=== PATIENT | female | born 1945 | race Caucasian/White ===

== ENCOUNTER 2020-01-23 17:49 | Inpatient (IN) | payer MEDICARE ==
[~2020-01-23] VITALS: Ht 144.8 cm; Wt 79.8 kg
--- NOTE | 2020-01-23 20:00 | NUR ---
PATIENT ADMITTED FROM [facility] FOR ADMITTING DX OF ACUTE CVA. PATIENT CAME VIA GURNEY WITH 2 INSTITUTIONAL ASSET MANAGER FROM [facility]. PATIENT IS ALERT AND VERBALLY RESPONSIVE. AFEBRILE. NO RESPIRATORY OR ACUTE DISTRESS. PATIENT ABLE TO MAKE NEEDS KNOWN. PATIENT DENIES PAIN, N/V, DIZZINESS. PATIENT WITH LEFT SIDED WEAKNESS. ORIENTED TO BED, ROOM, AND UNIT. MADE COMFORTABLE AND KEPT WARM AND DRY. DR CHRISTENSEN AND DR ESQUEDA MADE AWARE OF PATIENT'S ADMISSION. WILL CONTINUE TO MONITOR PATIENT AND ANTICIPATE NEEDS. WILL OBSERVE FALL AND SAFETY PRECAUTIONS.
[2020-01-23 20:30] VITALS: BP 136/66
[2020-01-23] MEDS ORDERED: Z GUARD REMEDY PASTE 57 GM TUBE TOP PRN (21:00)
[2020-01-23] MEDS ORDERED: BISACODYL 10 MG SUPP.RECT RC PRN (22:15)
--- NOTE | 2020-01-24 05:51 | NUR ---
PATIENT IS ASLEEP AT THIS TIME. SLEPT WELL THROUGH THE NIGHT. IN NO RESPIRATORY DISTRESS. NO COMPLAINTS OF PAIN. NO FACIAL GRIMACING OBSERVED. KEPT PATIENT WARM, DRY, AND COMFORTABLE. FALL AND SAFETY PRECAUTIONS OBSERVED. ALL NEEDS ATTENDED.
[2020-01-24] MEDS: PANTOPRAZOLE SODIUM 40 MG TABLET.DR PO SCH (06:16)
[2020-01-24 06:25] VITALS: BP 159/68
[2020-01-24 07:13] LABS: BASOPHILS # (AUTO) 0.1 K/uL (0.0-8.0); BASOPHILS % (AUTO) 1.2 % (0.0-2.0); EOSINOPHILS # (AUTO) 0.2 K/uL (0.0-0.7); EOSINOPHILS % (AUTO) 2.1 % (0.0-7.0); HEMATOCRIT 41.3 % (31.2-41.9); LYMPHOCYTES # (AUTO) 2.2 K/uL (20.0-40.0); LYMPHOCYTES % (AUTO) 20.1 % (20.5-51.5); MEAN CORPUSCULAR HEMOGLOBIN 27.9 uug (24.7-32.8); MEAN CORPUSCULAR HGB CONC 34 g/dL (32.3-35.6); MONOCYTES # (AUTO) 0.8 K/uL (2.0-10.0); MONOCYTES % (AUTO) 6.9 % (0.0-11.0); NEUTROPHILS # (AUTO) 7.6 K/uL (1.8-8.9); NEUTROPHILS % (AUTO) 69.7 % (38.5-71.5); PLATELET COUNT (AUTO) 414 K/uL (179-408); RED BLOOD CELL COUNT(AUTO) 5.04 MIL/uL (3.63-4.92); WHITE BLOOD COUNT (AUTO) 10.9 K/uL (3.8-11.8)
[2020-01-24 07:35] LABS: THYROID STIMULATING HORMONE 7.217 mIU/mL (0.358-3.740)
[2020-01-24 07:58] LABS: BILIRUBIN,TOTAL 0.5 mg/dL (0.2-1.0); CREATININE 0.8 mg/dL (0.6-1.3); MAGNESIUM 2.3 mg/dL (1.8-2.4); PHOSPHOROUS 3.8 mg/dL (2.5-4.9); POTASSIUM 4.1 mmol/L (3.5-5.1); TOTAL PROTEIN, SERUM 7.6 g/dL (6.4-8.2)
[2020-01-24] MEDS: CLOPIDOGREL 75 MG TABLET PO SCH (09:37)
[2020-01-24] MEDS: VALSARTAN 80 MG TABLET PO SCH (09:37)
[2020-01-24] MEDS: DOCUSATE SODIUM 100 MG CAPSULE PO SCH (09:37)
--- NOTE | 2020-01-24 14:43 | NUR ---
Social Work Note/PH9 Post Stroke Depression Screening: pack worker supervisor met with patient and conducted a PHQ-9 (Post Stroke Depression Screening) in which the patient score of a level of 3 for depression. Patient does not require a psychiatric consult at this time.
--- NOTE | 2020-01-24 14:44 | NUR ---
Social Work Stroke Resources: printing table worker met with patient and provided stroke referrals such as: Stroke Family Warmline at (7-926-7-STROKE) and additional information on caring for a stroke survivor ( ). printing table worker also educated patient on the signs of Stroke and to immediately call 911. printing table worker provided education on the signs of stroke and provided educational packet with information: Dietary food, what stroke is, risks, emotional support, finding support, medical management, and effects of stroke.
[2020-01-24 16:36] VITALS: BP 122/54
[2020-01-24 20:00] VITALS: BP 127/64
[2020-01-24] MEDS: ATORVASTATIN 40 MG TABLET PO SCH (21:52)
[2020-01-25 05:40] VITALS: BP 144/71
[2020-01-25] MEDS: PANTOPRAZOLE SODIUM 40 MG TABLET.DR PO SCH (07:02)
[2020-01-25] MEDS: DOCUSATE SODIUM 100 MG CAPSULE PO SCH (08:46)
[2020-01-25] MEDS: CLOPIDOGREL 75 MG TABLET PO SCH (08:46)
[2020-01-25] MEDS: VALSARTAN 80 MG TABLET PO SCH (08:47)
[2020-01-25] MEDS: BISACODYL 5 MG TABLET.DR PO PRN (16:28)
--- NOTE | 2020-01-25 16:46 | NUR ---
NO DISTRESS NOTED, TOLERATED MEALS WELL
[2020-01-25 16:48] VITALS: BP 144/76
--- NOTE | 2020-01-25 19:35 | NUR ---
In bed, awake, watching TV. Denies any pain/discomforts at this time.Safety measure and afll precaution maintained. Continue care as planned.
[2020-01-25 19:59] VITALS: BP 146/75
[2020-01-25] MEDS: ATORVASTATIN 40 MG TABLET PO SCH (20:42)
[2020-01-26] MEDS: PANTOPRAZOLE SODIUM 40 MG TABLET.DR PO SCH (05:54)
[2020-01-26 05:55] VITALS: BP 137/63
--- NOTE | 2020-01-26 07:28 | NUR ---
Shift end Report: Slept well. VS stable. No complaint reported all night. Urine very concentrated. Instructed patient to increase oral fluid intake as tolerated unless contraindicated. All needs attended and met. Good bed bath rendered, tolerated well. No significant event reported. Continue current rehab plan of care.
[2020-01-26 08:00] VITALS: BP 116/79
[2020-01-26] MEDS: DOCUSATE SODIUM 100 MG CAPSULE PO SCH (08:13)
[2020-01-26] MEDS: CLOPIDOGREL 75 MG TABLET PO SCH (08:13)
[2020-01-26] MEDS: VALSARTAN 80 MG TABLET PO SCH (08:21)
--- NOTE | 2020-01-26 12:48 | NUR ---
INDIVIDUALIZED PLAN OF CARE
--- NOTE | 2020-01-26 13:54 | NUR ---
Patient alert, oriented x 4, not in any distress, sitting on the wheelchair, on room air. She denies any pain or discomfort. Due medications administered and tolerated well. Assisted with her needs promptly and met. Call light and frequently used items placed within reach.
[2020-01-26 16:00] VITALS: BP 121/62
[2020-01-26] MEDS: ATORVASTATIN 40 MG TABLET PO SCH (20:14)
[2020-01-26 20:27] VITALS: BP 124/54
--- NOTE | 2020-01-26 20:28 | NUR ---
Received pt resting in bed. AAO x4. No acute distress noted. VSS. Denies pain/ discomfort. Turned and repositioned. NIHSS assessment done. Due med given as ordered. Safety measures maintained. Call light and personal items within reach. Will continue to monitor.
[2020-01-27] MEDS: PANTOPRAZOLE SODIUM 40 MG TABLET.DR PO SCH (06:21)
[2020-01-27 06:31] VITALS: BP 151/64
[2020-01-27] MEDS: VALSARTAN 80 MG TABLET PO SCH (08:18)
[2020-01-27] MEDS: DOCUSATE SODIUM 100 MG CAPSULE PO SCH (08:19)
[2020-01-27] MEDS: CLOPIDOGREL 75 MG TABLET PO SCH (08:19)
--- NOTE | 2020-01-27 14:46 | NUR ---
INTERDISCIPLINARY TEAM CONFERENCE
[2020-01-27 16:58] VITALS: BP 125/60
--- NOTE | 2020-01-27 18:03 | NUR ---
PATIENT IS ALERT, ORIENTED X4, VERBALLY RESPONSIVE, NO SOB,R RANJEET EVEN NONLABORED, SKIN WARM AND DRY TO TOUCH, NO SKIN ISSUES NOTED, NO PRESSURE INJURY, SKIN IS INTACT, WELL HYDRATED, KEPT CLEAN AND DRY, ASSISTED TO THE BATHROOM, HAD SOFT BM TODAY, BOTH HEELS SKIN INTACT, NO PRESSURE INJURY NOTED UPON SKIN INSPECTION. NO DISTRESS NOTED, PATIENT TOLERATED MEALS AND MEDS, PT, OT SERVICES WELL
--- NOTE | 2020-01-27 19:03 | NUR ---
PATIENT UPPER FULL DENTURE CLEANED, PLACED IN GREEN BOX, PLACED ON SIDE TABLE, ENDORSED TO NEXT SHIFT NURSE
[2020-01-27 20:05] VITALS: BP 145/65
[2020-01-27] MEDS: ATORVASTATIN 40 MG TABLET PO SCH (20:38)
--- NOTE | 2020-01-27 20:51 | NUR ---
Received pt resting in bed and watching tv. AAO x4. No acute distress noted. Denies pain/discomfort. Due med given as ordered. NIHSS assessment done. Safety measures maintained. Call light and personal items within reach. Will continue to monitor.
[2020-01-28] MEDS: PANTOPRAZOLE SODIUM 40 MG TABLET.DR PO SCH (06:21)
[2020-01-28 06:37] VITALS: BP 132/56
[2020-01-28] MEDS: DOCUSATE SODIUM 100 MG CAPSULE PO SCH (09:00)
[2020-01-28] MEDS: VALSARTAN 80 MG TABLET PO SCH (09:35)
[2020-01-28] MEDS: CLOPIDOGREL 75 MG TABLET PO SCH (09:36)
[2020-01-28 10:28] VITALS: BP 122/84
--- NOTE | 2020-01-28 15:44 | NUR ---
Pt received, assessed, no acute distress at this time. Pt assisted to transfer to wheelchair and to toilet for voidingx3 and BMx1. Pt compliant with routine medication administration and therapy as offered. All comfort and safety needs attended to. VSS. Pt refused Colace and Miralax due to loose stool this morning. Belongings list updated, sonRonnie brought new items and took 3 items home with him. Pt assisted to sit up for meals and back to bed following. Side rails upx2, bed in locked and lowest position, alarm on, and SCD pumps intermittently as tolerated. Call light and personal items placed within reach. Will continue to monitor.
[2020-01-28] MEDS: ACETAMINOPHEN 325 MG TABLET PO PRN (18:43)
[2020-01-28 18:48] VITALS: BP 147/57
--- NOTE | 2020-01-28 19:40 | NUR ---
Awake watching TV at this time with HOB elevated, left arm supported with pillow. Denies any pain/discomforts at this time. Safety measures and fall precaution maintained. Continue care as planned.
[2020-01-28 20:10] VITALS: BP 135/72
[2020-01-28] MEDS: ATORVASTATIN 40 MG TABLET PO SCH (20:41)
[2020-01-29 05:14] VITALS: BP 149/71
[2020-01-29] MEDS: PANTOPRAZOLE SODIUM 40 MG TABLET.DR PO SCH (06:07)
--- NOTE | 2020-01-29 06:59 | NUR ---
Shift End Report: VS stable. No complaint presented all night. Slept good. All needs attended and met. No significant event reported all night. Continue current rehab plan of care.
[2020-01-29 08:00] VITALS: BP 160/75
[2020-01-29] MEDS: DOCUSATE SODIUM 100 MG CAPSULE PO SCH (08:05)
[2020-01-29] MEDS: CLOPIDOGREL 75 MG TABLET PO SCH (08:06)
[2020-01-29] MEDS: ACETAMINOPHEN 325 MG TABLET PO PRN (08:06)
[2020-01-29] MEDS: VALSARTAN 80 MG TABLET PO SCH (08:09)
--- NOTE | 2020-01-29 14:52 | NUR ---
Pt received, assessed, denies pain, no acute distress noted. Pt AAOx3-4, able to make needs known, sat up in wheelchair for meals. Pt compliant with medication administration and therapies as offered. Left arm remains weak with slight improvement to 2 fingers mobility. All comfort and safety measures implemented. Pt seen by , new order received for wound/skin evaluation consult due to alteration in perineal skin integrity. Pt assisted to transfer to wheelchair then to toilet 3x for voiding and returned to bed x1 assist. Bed in locked and lowest position with side rails up x2, alarm on, call light and personal items placed within reach. Will continue to monitor.
[2020-01-29 16:00] VITALS: BP 125/53
--- NOTE | 2020-01-29 19:32 | NUR ---
RECEIVED PATIENT IN BED, ALERT AND VERBALLY RESPONSIVE. WATCHING TELEVISION AT THIS TIME. PATIENT IS WARM, DRY, AND COMFORTABLE. WILL CONTINUE TO ANTICIPATE AND ATTEND TO PATIENT'S NEEDS.
[2020-01-29 20:11] VITALS: BP 132/55
[2020-01-29] MEDS: ATORVASTATIN 40 MG TABLET PO SCH (20:36)
--- NOTE | 2020-01-30 04:51 | NUR ---
PATIENT ASSISTED WITH BED SERRA X 2 TIMES. WITH EPISODE OF VOIDING CLEAR YELLOW URINE. PATIENT IN NO ACUTE OR RESPIRATORY DISTRESS. ALL NEEDS ATTENDED. KEPT PATIENT WARM, DRY, AND COMFORTABLE.
[2020-01-30] MEDS: PANTOPRAZOLE SODIUM 40 MG TABLET.DR PO SCH (06:09)
[2020-01-30 06:31] VITALS: BP 149/63
--- NOTE | 2020-01-30 07:30 | NUR ---
Received patient in bed, alert and awake. On room air with no distress noted. She cannot move left arm but able to slightly move left index finger. Patient has mild weakness on left leg. Call light placed on right side. Bed locked and in lowest position, side rails 2x up and bed alarm on. Will continue to monitor.
[2020-01-30 07:50] VITALS: BP 157/60
[2020-01-30] MEDS: DOCUSATE SODIUM 100 MG CAPSULE PO SCH (09:05)
[2020-01-30] MEDS: CLOPIDOGREL 75 MG TABLET PO SCH (09:05)
[2020-01-30] MEDS: VALSARTAN 80 MG TABLET PO SCH (09:06)
--- NOTE | 2020-01-30 12:56 | NUR ---
WOUND CARE CONSULT: PT PRESENTS WITH SLIGHT RASH AND SKIN DISCOLORATION TO GROIN FOLDS. RECOMMENDATIONS MADE FOR SKIN PROTECTION AND SKIN CARE. DISCUSSED WITH NURSING STAFF. WILL SEE PRN. SANDRA IN AGREEMENT WITH PLAN OF CARE. Addendum: 01/30/20 at 1257 by LEILA CHAPIN RN Amended: Links added.
[2020-01-30 15:00] VITALS: BP 149/81
[2020-01-30] MEDS: CLOTRIMAZOLE 1% CREAM 30 GM TUBE TOP SCH (17:07)
--- NOTE | 2020-01-30 19:04 | NUR ---
Patient in bed awake with no distress and complaints. Picture taken for groin folds per wound care order. Patient wanted to go to the bathroom, assisted by AUTOMOBILE DAMAGE FIELD APPRAISER. Will continue to monitor for safety.
[2020-01-30 20:22] VITALS: BP 110/53
[2020-01-30] MEDS: ATORVASTATIN 40 MG TABLET PO SCH (20:38)
--- NOTE | 2020-01-31 00:42 | NUR ---
PATIENT IN BED, ASLEEP, EASILY AROUSABLE. NO FACIAL GRIMACING NOTED. RECEIVED DUE MEDICATIONS, TOLERATED WELL. KEPT PATIENT CLEAN, WARM, DRY, AND COMORTABLE. FALL AND SAFETY PRECAUTIONS OBSERVED. WILL CONTINUE TO ATTEND TO PATIENT'S NEEDS.
[2020-01-31 05:19] VITALS: BP 155/66
--- NOTE | 2020-01-31 05:43 | NUR ---
PATIENT IS ASLEEP IN BED, EASILY AROUSABLE WITH CALLING OF NAME. PATIENT SLEPT WELL THROUGH THE NIGHT. PATIENT IN NO ACUTE OR RESPIRATORY DISTRESS. PATIENT ASSISTED WITH BED SERRA. KEPT PATIENT WARM, DRY, AND COMFORTABLE. FALL AND SAFETY PRECAUTIONS OBSERVED. ALL NEEDS ATTENDED.
[2020-01-31] MEDS: PANTOPRAZOLE SODIUM 40 MG TABLET.DR PO SCH (06:08)
[2020-01-31] MEDS: BISACODYL 5 MG TABLET.DR PO PRN (06:09)
[2020-01-31] MEDS: CLOPIDOGREL 75 MG TABLET PO SCH (09:39)
[2020-01-31] MEDS: DOCUSATE SODIUM 100 MG CAPSULE PO SCH (09:39)
[2020-01-31] MEDS: VALSARTAN 80 MG TABLET PO SCH (09:41)
[2020-01-31] MEDS: CLOTRIMAZOLE 1% CREAM 30 GM TUBE TOP SCH ×2 (09:42→16:26)
[2020-01-31 11:16] VITALS: BP 138/66
--- NOTE | 2020-01-31 13:53 | NUR ---
Received patient awake in bed in stable condition. Continue on pain management if needed. no complaint of pain/discomfort. On therapy for ambulation and ADL activities. Continue vital signs and laboratories monitoring. Continue speech therapy. On swallowing and fall risk precaution.
[2020-01-31 16:33] VITALS: BP 129/54
--- NOTE | 2020-01-31 19:33 | NUR ---
Patient had 3x BM today. MD Rocha aware. no complaint voiced during rounds. not in distress. will continue monitor
[2020-01-31] MEDS ORDERED: ONDANSETRON HCL 4 MG TABLET PO PRN (19:45)
[2020-01-31 20:00] VITALS: BP 130/56
[2020-01-31] MEDS: ATORVASTATIN 40 MG TABLET PO SCH (21:07)
--- NOTE | 2020-01-31 22:50 | NUR ---
Received pt resting in bed. AAO x3-4. No acute distress noted. Denies pain/ discomfort. Dr. Rocha seen pt. Due med given as ordered. Groin area cleaned and applied lotrimin cream. Turned and repositioned. Both heels offloaded. Safety measures maintained. Call light and personal items within reach. Will continue to monitor. Addendum: 02/01/20 at 2126 by Praful Addison RN Bruising on left gluteal fold/ buttock noted last night 01/31/2020. Picture taken. Turned and repositioned throughout the night q2h. Both heels offloaded.
[2020-02-01] MEDS: PANTOPRAZOLE SODIUM 40 MG TABLET.DR PO SCH (06:01)
[2020-02-01 06:23] VITALS: BP 138/55
[2020-02-01 06:54] LABS: BASOPHILS # (AUTO) 0.1 K/uL (0.0-8.0); EOSINOPHILS # (AUTO) 0.2 K/uL (0.0-0.7); EOSINOPHILS % (AUTO) 2.6 % (0.0-7.0); HEMATOCRIT 39.4 % (31.2-41.9); HEMOGLOBIN 13.2 g/dL (10.9-14.3); LYMPHOCYTES % (AUTO) 21.5 % (20.5-51.5); MEAN CORPUSCULAR HEMOGLOBIN 27.6 uug (24.7-32.8); MEAN CORPUSCULAR HGB CONC 33 g/dL (32.3-35.6); MEAN CORPUSCULAR VOLUME 82.7 fL (75.5-95.3); MONOCYTES # (AUTO) 0.7 K/uL (2.0-10.0); MONOCYTES % (AUTO) 7.1 % (0.0-11.0); NEUTROPHILS # (AUTO) 6.4 K/uL (1.8-8.9); NEUTROPHILS % (AUTO) 67.8 % (38.5-71.5); PLATELET COUNT (AUTO) 359 K/uL (179-408); RED BLOOD CELL COUNT(AUTO) 4.76 MIL/uL (3.63-4.92); WHITE BLOOD COUNT (AUTO) 9.5 K/uL (3.8-11.8)
[2020-02-01 07:08] LABS: BILIRUBIN,TOTAL 0.5 mg/dL (0.2-1.0); CREATININE 0.8 mg/dL (0.6-1.3); MAGNESIUM 2.1 mg/dL (1.8-2.4); PHOSPHOROUS 3.7 mg/dL (2.5-4.9); POTASSIUM 3.9 mmol/L (3.5-5.1); TOTAL PROTEIN, SERUM 7.1 g/dL (6.4-8.2)
[2020-02-01] MEDS: DOCUSATE SODIUM 100 MG CAPSULE PO SCH (08:20)
[2020-02-01] MEDS: CLOPIDOGREL 75 MG TABLET PO SCH (08:20)
[2020-02-01] MEDS: VALSARTAN 80 MG TABLET PO SCH (08:21)
[2020-02-01] MEDS: CLOTRIMAZOLE 1% CREAM 30 GM TUBE TOP SCH ×2 (08:23→17:27)
--- NOTE | 2020-02-01 13:53 | NUR ---
PATIENT IS ALERT, ORIENTED X4, VERBALLY RESPONSIVE, NO SOB, RESP EVEN NONLABORED,SKIN WARM AND DRY TO TOUCH, PATIENT AMBULATED WITH CANE WITH PT, TOLERATED WELL, BRP, REPOSITIONED WHILE IN BED, NOTED WITH BRUISE TO LEFT GLUTEAL FOLD, CONTINUE TO MONITOR, REPOSITION WHILE IN BED, CLEANED PERINEAL AREA WITH SOAP AND WATER, CONTINUE TO MONITOR
[2020-02-01 16:00] VITALS: BP 135/70
[2020-02-01] MEDS: ACETAMINOPHEN 325 MG TABLET PO PRN (17:34)
--- NOTE | 2020-02-01 18:46 | NUR ---
Cleaned patient very well, teaching provided to patient not to sit in wheel chair long time of period, lay down in bed on the side, patient verbalized understanding of it, patient ambulated during day, switched patient to the wheelchair and to the bed on her side, due to purplish color discoloration to left gluteal fold. wound consult placed for further instructions, patient laying in bed on her right lateral side, both heels are floating, heels noted with excessive dryness, however no redness noted.
--- NOTE | 2020-02-01 19:24 | NUR ---
PATIENT DENTURES ARE ENDORSED TO NEXT SHIFT
[2020-02-01] MEDS: ATORVASTATIN 40 MG TABLET PO SCH (20:11)
[2020-02-01 21:08] VITALS: BP 110/53
--- NOTE | 2020-02-01 21:21 | NUR ---
Received pt sleeping comfortably. Aroused easily to verbal stimuli. Alert and oriented x4. No acute distress noted. Denies pain/ discomfort. Due med given as ordered. Turned and repositioned. Bruise on left gluteal fold or buttock noted. Safety measures maintained. Call light and personal items within reach. Will continue to monitor.
--- NOTE | 2020-02-01 21:26 | NUR ---
Pt was cleaned and kept dry. Lotrimin cream applied on groin area. Continue to monitor.
[2020-02-02 05:53] VITALS: BP 135/67
[2020-02-02] MEDS: PANTOPRAZOLE SODIUM 40 MG TABLET.DR PO SCH (06:02)
--- NOTE | 2020-02-02 06:41 | NUR ---
Pt slept comfortably at night. Turned and repositioned q2h. Both heels offloaded. Skin care rendered. Pt kept clean and dry. VSS. All needs attended to promptly. Denture at bedside. Will endorse accordingly to oncoming shift.
[2020-02-02 08:00] VITALS: BP 136/54
[2020-02-02] MEDS: CLOPIDOGREL 75 MG TABLET PO SCH (08:17)
[2020-02-02] MEDS: DOCUSATE SODIUM 100 MG CAPSULE PO SCH (08:17)
[2020-02-02] MEDS: VALSARTAN 80 MG TABLET PO SCH (08:18)
[2020-02-02] MEDS: CLOTRIMAZOLE 1% CREAM 30 GM TUBE TOP SCH ×2 (08:20→16:33)
--- NOTE | 2020-02-02 10:09 | NUR ---
Received patient awake in bed in stable condition. Assisted in the bathroom this morning. left purple discoloration noted in the sacrum. Applied Z-guard. skin intact. Continue to encourage and assist patient to turn when in bed with good effect. Awaiting for wound nurse consult. no complaint of pain/discomfort. will continue monitor
[2020-02-02 16:01] VITALS: BP 117/57
[2020-02-02 19:45] VITALS: BP 124/71
[2020-02-02] MEDS: ATORVASTATIN 40 MG TABLET PO SCH (20:39)
--- NOTE | 2020-02-03 04:00 | NUR ---
Received patient in bed. AAO x4. Not in acute distress or SOB. On room air. No Complain of pain. Patient was stable throughout the shift and has a good sleep during the night. Assisted her with the bathroom as needed and kept her clean and dry. Physical assessment done. All due medication given and well tolerated. All needs attended promptly. Fall prevention observed. Safety measures maintained. Bed in low and lock position, side rails up x2 for safety. Call light and frequently used items within reach. Continue to monitor and will endorse to oncoming nurse accordingly.
[2020-02-03 05:38] VITALS: BP 140/55
[2020-02-03] MEDS: PANTOPRAZOLE SODIUM 40 MG TABLET.DR PO SCH (06:09)
[2020-02-03 07:32] VITALS: BP 126/59
[2020-02-03] MEDS: CLOPIDOGREL 75 MG TABLET PO SCH (08:52)
[2020-02-03] MEDS: DOCUSATE SODIUM 100 MG CAPSULE PO SCH (08:52)
[2020-02-03] MEDS: VALSARTAN 80 MG TABLET PO SCH (08:52)
[2020-02-03] MEDS: CLOTRIMAZOLE 1% CREAM 30 GM TUBE TOP SCH ×2 (08:53→17:20)
--- NOTE | 2020-02-03 10:22 | NUR ---
WOUND CARE CONSULT: PT PRESENTS WITH LEFT BUTTOCK BRUISE. PT STATES SAT DOWN HARD ON THE COMMODE. RASH RESOLVING TO GROIN FOLDS. WILL SEE PRN.
--- NOTE | 2020-02-03 13:41 | NUR ---
INTERDISCIPLINARY TEAM CONFERENCE
[2020-02-03 14:30] VITALS: BP 115/52
--- NOTE | 2020-02-03 19:40 | NUR ---
In bed, awake, watching TV game show. Denies any pain/discomforts at this time,. safety measures and fall precaution maintained. Continue care as planned.
[2020-02-03 19:55] VITALS: BP 109/52
[2020-02-03] MEDS: ATORVASTATIN 40 MG TABLET PO SCH (20:54)
[2020-02-04 04:56] VITALS: BP 139/58
[2020-02-04] MEDS: PANTOPRAZOLE SODIUM 40 MG TABLET.DR PO SCH (05:26)
--- NOTE | 2020-02-04 05:35 | NUR ---
Shift End Report: Vs stable. Slept good. No complaint presented all night. No fall/injury reported. All needs attended and met. No significant event reported. Continue current rehab plan of care.
[2020-02-04 08:00] VITALS: BP 136/54
[2020-02-04] MEDS: DOCUSATE SODIUM 100 MG CAPSULE PO SCH (09:06)
[2020-02-04] MEDS: CLOPIDOGREL 75 MG TABLET PO SCH (09:06)
[2020-02-04] MEDS: VALSARTAN 80 MG TABLET PO SCH (09:07)
[2020-02-04] MEDS: CLOTRIMAZOLE 1% CREAM 30 GM TUBE TOP SCH ×2 (09:11→17:42)
--- NOTE | 2020-02-04 18:08 | NUR ---
Patient is AAO X 4. Able to express most needs. NO SOB or any acute distress noted. Vital signs stable for patient. No complains of pain throughout shift. Due medications administered as ordered and scheduled and tolerated well. Pt. on continuos PT/OT therapy. Patient able to move around via w/c and 1 person assist. Pt still noted with sever Left sided weakness on upper extremitas and weakness on left lower extremitas. Skin kept clean and dry, patient took shower during shift with assistance. All other needs attended, safety measures in place, patient sitting up on w/c and watching TV at this time, call light left within easy reach and will continue with care.
[2020-02-04 18:10] VITALS: BP 155/74
[2020-02-04 19:51] VITALS: BP 148/65
[2020-02-04] MEDS: ATORVASTATIN 40 MG TABLET PO SCH (20:49)
--- NOTE | 2020-02-04 21:05 | NUR ---
resting in bed upon initial rounds. Admitted for CVA with left side weak. LUE flaccid. Needs attended. Denies any pain nor any discomfort. VSS. Compliant with care and meds. Due meds given as ordered. Voiding well on the bedpan. Fall precautions maintained. Siderails up for safety.
[2020-02-05 05:33] VITALS: BP 134/53
[2020-02-05] MEDS: PANTOPRAZOLE SODIUM 40 MG TABLET.DR PO SCH (06:24)
--- NOTE | 2020-02-05 06:32 | NUR ---
End of shift note: Slept well throughout the night. Repositioned for comfort. Left side weakness noted. Needs attended. Voiding well on the bed hooper. No complaints presented during the shift. Will monitor patient. VSS.
[2020-02-05] MEDS: DOCUSATE SODIUM 100 MG CAPSULE PO SCH (09:29)
[2020-02-05] MEDS: VALSARTAN 80 MG TABLET PO SCH (09:29)
[2020-02-05] MEDS: CLOTRIMAZOLE 1% CREAM 30 GM TUBE TOP SCH ×2 (09:30→19:12)
[2020-02-05] MEDS: CLOPIDOGREL 75 MG TABLET PO SCH (09:30)
[2020-02-05 15:38] VITALS: BP 128/62
[2020-02-05] MEDS: ATORVASTATIN 40 MG TABLET PO SCH (20:01)
[2020-02-05 21:13] VITALS: BP 134/54
--- NOTE | 2020-02-05 21:15 | NUR ---
Received pt resting in bed and watching tv. AAO x4. No acute distress noted. Denies pain/ discomfort. Due meds given as ordered. Skin care rendered. Turned and repositioned. Both heels offloaded. Safety measures maintained. Call light and personal items within reach. Will continue to monitor.
--- NOTE | 2020-02-05 22:29 | NUR ---
Pt's left buttock bruise and rash on groin folds resolving. Turned and repositioned. Continue to monitor.
[2020-02-06 05:17] VITALS: BP 124/57
[2020-02-06] MEDS: PANTOPRAZOLE SODIUM 40 MG TABLET.DR PO SCH (06:12)
[2020-02-06] MEDS: DOCUSATE SODIUM 100 MG CAPSULE PO SCH (08:16)
[2020-02-06] MEDS: CLOPIDOGREL 75 MG TABLET PO SCH (08:16)
[2020-02-06] MEDS: CLOTRIMAZOLE 1% CREAM 30 GM TUBE TOP SCH ×2 (08:17→16:53)
[2020-02-06] MEDS: VALSARTAN 80 MG TABLET PO SCH (08:17)
[2020-02-06 09:12] VITALS: BP 144/69
--- NOTE | 2020-02-06 13:13 | NUR ---
Pt received this morning resting in bed. Pt assessed, denies pain, no SOB, and no acute distress noted. Pt assisted with wheelchair transfer to toilet for voidingx2. Pt sat up for both meals in wheelchair. Bhumika care provided as ordered, rash resolving. VSS. Pt is cooperative with medication administration and compliant with therapy as offered. All safety and comfort needs met at this time. Call light and personal items placed within reach. Will continue to monitor.
[2020-02-06 16:19] VITALS: BP 126/59
--- NOTE | 2020-02-06 20:06 | NUR ---
Pt's safely transferred to med/surg unit room 315, via wheelchair, all belongings accounted for and oriented to unit. All comfort and safety needs met. Pt endorsed to night nurse Geraldo to continue plan of care.
[2020-02-06 20:36] VITALS: BP 138/70
[2020-02-06] MEDS ORDERED: ONDANSETRON HCL 4 MG TABLET PO PRN (21:15)
[2020-02-06] MEDS: ATORVASTATIN 40 MG TABLET PO SCH (22:19)
[2020-02-07] MEDS ORDERED: PANTOPRAZOLE SODIUM 40 MG TABLET.DR PO ONE (03:38)
--- NOTE | 2020-02-07 04:26 | NUR ---
Received patient in bed. AAO x4. Not in acute distress or SOB. On room air. No Complain of pain. Patient was stable throughout the shift and has a good sleep during the night. Skin care rendered. Physical assessment done. All due medication given and well tolerated. All needs attended promptly. Fall prevention observed. Safety measures maintained. Bed in low and lock position, side rails up x2 for safety. Call light and frequently used items within reach. Continue to monitor and will endorse to oncoming nurse accordingly.
[2020-02-07 05:30] VITALS: BP 134/71
[2020-02-07] MEDS: PANTOPRAZOLE SODIUM 40 MG TABLET.DR PO SCH (06:12)
[2020-02-07 08:26] VITALS: BP 141/66
[2020-02-07] MEDS: DOCUSATE SODIUM 100 MG CAPSULE PO SCH (08:49)
[2020-02-07] MEDS: VALSARTAN 80 MG TABLET PO SCH (08:49)
[2020-02-07] MEDS: CLOTRIMAZOLE 1% CREAM 30 GM TUBE TOP SCH ×2 (08:50→17:00)
[2020-02-07] MEDS: CLOPIDOGREL 75 MG TABLET PO SCH (08:57)
--- NOTE | 2020-02-07 10:53 | NUR ---
PATIENT REASSIGNMENT AT THIS TIME [id number] REPORT BUT PATIENT IS NOT IN ROOM SHE WENT DOWN STAIRS FOR THERAPY WITH THE THERAPIST WILL ACCESS PATIENT WHEN SHE RETURNS
--- NOTE | 2020-02-07 10:56 | NUR ---
Received patient awake in bed. Alert and orientedx4. No complaint of pain/discomfort. not in distress. Assisted to bathroom via wheelchair, able to stand and transfer easily. Continue therapy for increase strenght and endurance. tolerated well. not in distress. will continue monitor Addendum: 02/07/20 at 1100 by SAMMY HAWKINS RN RN Patient endorse to other RN for continuity of care around 1053AM in stable condition. Patient is in the therapy right now.
--- NOTE | 2020-02-07 14:28 | NUR ---
PATIENT IS IN ROOM AWAKE ALERT AND ORIENTED SITTING UP ON THE W/CHAIR WATCHING TV DENIES PAIN OR DISCOMFORTS LEFT ARM FLACCID BUT ABLE TO PROPEL HER W/CHAIR USING BOTH FEET CALL LIGHTS AND PERSONAL BELONGINGS ARE WITHIN EASY REACH AT THIS TIME WILL CONTINUE TO OBSERVE.
[2020-02-07 15:57] VITALS: BP 132/82
--- NOTE | 2020-02-07 18:00 | NUR ---
PATIENT ASSISTED TO THE BATHROOM THEN BACK TO BED WITH MIN ASSIST DENIES PAIN OR DISCOMFORTS CALL LIGHTS AND PERSONAL BELONGINGS ARE WITHIN EASY REACH MADE COMFORTABLE
[2020-02-07 20:00] VITALS: BP 119/53
--- NOTE | 2020-02-07 20:00 | NUR ---
Received report from day shift. Patient is alert and oriented times four. No signs of distress, No SOB, no complains of pain or discomfort. Patient is laying in bed watching TV. Left arm is flaccid, but is able to assist to get out of bed into wheelchair using her stronger right side. All patients needs are attended to. Will continue to monitor patient through the night.
[2020-02-07] MEDS: ATORVASTATIN 40 MG TABLET PO SCH (21:38)
--- NOTE | 2020-02-07 22:00 | NUR ---
Patient is in stable condition, no signs and symptoms of discomfort. Patient is getting ready to g to sleep. Patient took her medication as tolerable with water. Assisted patient to the bathroom, patient was able to move to her wheelchair with assistance, patient using both feet to turn and pivot from the bed to the wheelchair and back to the bed. All personal belongings are within patient reach. Bed is locked and lowered to the lowest position, bed rails x2, call light within reach. Will continue to monitor patient.
[2020-02-08 06:00] VITALS: BP 114/60
[2020-02-08] MEDS: PANTOPRAZOLE SODIUM 40 MG TABLET.DR PO SCH (06:14)
--- NOTE | 2020-02-08 06:58 | NUR ---
End of shift note: Slept well throughout the night. Repositioned for comfort. Needs attended. assisted patient at 0600 to the bathroom with the wheelchair. No complaints presented during the shift. Will endorse report to next shift.
[2020-02-08 07:44] VITALS: BP 114/56
[2020-02-08] MEDS: CLOPIDOGREL 75 MG TABLET PO SCH (08:06)
[2020-02-08] MEDS: CLOTRIMAZOLE 1% CREAM 30 GM TUBE TOP SCH ×2 (08:06→16:10)
[2020-02-08] MEDS: DOCUSATE SODIUM 100 MG CAPSULE PO SCH (08:06)
[2020-02-08] MEDS: VALSARTAN 80 MG TABLET PO SCH (10:53)
[2020-02-08 14:41] VITALS: BP 123/64
[2020-02-08 20:09] VITALS: BP 121/55
[2020-02-08] MEDS: ATORVASTATIN 40 MG TABLET PO SCH (20:31)
--- NOTE | 2020-02-08 21:18 | NUR ---
Received report from day shift. Received patient in bed. AAO x4. Not in acute distress or SOB. On room air 97%. No Complaint of pain.Physical assessment done. All due medication given and well tolerated. All needs attended promptly. Fall prevention observed. Safety measures maintained. Bed in low and lock position, side rails up x2 for safety. Call light and frequently used items within reach. Continue to monitor through the night.
[2020-02-09 04:10] VITALS: BP 145/94
[2020-02-09] MEDS: PANTOPRAZOLE SODIUM 40 MG TABLET.DR PO SCH (06:04)
--- NOTE | 2020-02-09 06:23 | NUR ---
Shift End Report: VS stable. Slept well. No complaint presented throughout the the night. All needs attended and met. No significant event reported. Continue current rehab plan of care.
[2020-02-09] MEDS: DOCUSATE SODIUM 100 MG CAPSULE PO SCH (08:01)
[2020-02-09] MEDS: VALSARTAN 80 MG TABLET PO SCH (08:01)
[2020-02-09] MEDS: ACETAMINOPHEN 325 MG TABLET PO PRN (08:01)
[2020-02-09] MEDS: CLOPIDOGREL 75 MG TABLET PO SCH (08:01)
[2020-02-09] MEDS: CLOTRIMAZOLE 1% CREAM 30 GM TUBE TOP SCH ×2 (08:03→17:27)
[2020-02-09 11:33] VITALS: BP 137/60
--- NOTE | 2020-02-09 15:30 | NUR ---
patient had a mechanical fall from bed to the floor, lying on floor on her left side, alert, oriented x4, verbally responsive,no sob, resp even nonlabored,skin warm nd dry to touch, assessment done, able to move her both legs without any limitation, denies pain, able to move her right arm to full range of motion, limited ROM to left arm due to CVA, Neurocheck performed, with in normal limits, PERRLA is intact. assisted patient back to wheelchair, assisted to bathroom patient stood up and ambulated few steps from wheelchair to toilet with assist, denied pain, safety preacutions given to patient, patient verbalized understanding of it, patient stated she wanted to try to transfer herself, since she is going home on thursday, however patient stated she would not do it again without calling for help. noted with bruise to left thigh, continue to monitor for any signs or symptoms or complications from fall.
[2020-02-09 15:33] VITALS: BP 111/69
--- NOTE | 2020-02-09 15:54 | NUR ---
vitals BP 164/67, pulse 64, resp 16, temp 97.8, pain 0/10
--- NOTE | 2020-02-09 18:49 | NUR ---
PATIENT IS ALERT, ORIENTED X4, NO ACUTE DISTRESS NOTED, STATUS POST FALL, PATIENT DENIED ANY PAIN, PATIENT SUSTAINED MINOR ABRASION TO LEFT ELBOW, AND LEFT INNER THIGH, NO BLEEDING NOTED, JOESPH BULLARD IS AWARE ABOUT PATIENT FALL
[2020-02-09 20:00] VITALS: BP 113/61
[2020-02-09] MEDS: ATORVASTATIN 40 MG TABLET PO SCH (21:32)
--- NOTE | 2020-02-09 22:15 | NUR ---
resting in bed upon initial rounds. awake alert and oriented. VSS. S/P fall today. left elbow abrasion noted. left inner thigh noted with some redness and small abrasion also noted. Denies any pain nor any discomfort. Will monitor patient. Fall precautions maintained with bed alarm. Instructed patient not to get OOB without calling nurse. Patient complaint with care.
[2020-02-10 05:37] VITALS: BP 115/50
[2020-02-10] MEDS: PANTOPRAZOLE SODIUM 40 MG TABLET.DR PO SCH (06:10)
--- NOTE | 2020-02-10 06:42 | NUR ---
End of shift note: Slept well throughout the night. No acute distress noted. Voided in the BR. Gait steady. No complaints presented during the shift. Vital signs stable. Addendum: 02/10/20 at 0646 by SILVA SEAY RN wrong patient
--- NOTE | 2020-02-10 06:47 | NUR ---
End of the shift note: Quiet night. Slept most of the shift. VSS. No acute distress noted. Voided in the bedpan. Denies any pain nor any discomfort.
--- NOTE | 2020-02-10 08:30 | NUR ---
Received patient this morning awake, alert, oriented x 4, not in any form of distress on room air. She denies any pain or discomfort at this time. Assisted with her needs promptly. Patient assisted by LANGUAGE [employer] with transfer to wheelchair from bed for breakfast. Patient taken by OT for therapy to the rehab gym at this time via wheelchair.
[2020-02-10] MEDS: VALSARTAN 80 MG TABLET PO SCH (09:10)
[2020-02-10] MEDS: DOCUSATE SODIUM 100 MG CAPSULE PO SCH (09:10)
[2020-02-10] MEDS: CLOPIDOGREL 75 MG TABLET PO SCH (09:10)
[2020-02-10] MEDS: CLOTRIMAZOLE 1% CREAM 30 GM TUBE TOP SCH ×2 (09:11→16:59)
[2020-02-10 11:56] VITALS: BP 151/79
--- NOTE | 2020-02-10 13:05 | NUR ---
INTERDISCIPLINARY TEAM CONFERENCE
[2020-02-10 16:13] VITALS: BP 150/73
--- NOTE | 2020-02-10 19:27 | NUR ---
No significant change of condition noted during the shift. Patient remains alert, oriented x 4, in no distress. Patient participated with PT/OT/ST during the shift and tolerated well. Safety measures maintained. Call light and frequently used items placed within patient's reach. Explained the use of call light for assistance with verbalized understanding. Endorsed accordingly to paving plant operator nurse.
[2020-02-10 20:00] VITALS: BP 140/65
[2020-02-10] MEDS: ATORVASTATIN 40 MG TABLET PO SCH (20:07)
--- NOTE | 2020-02-10 20:43 | NUR ---
Received pt sitting in the wheelchair at bedside. AAO x4. No acute distress noted. Denies pain/ discomfort. Assisted to the bathroom and back safely in bed. Due med given as ordered. Pt to be discharge tomorrow. Notified [employer] for pickup driver at 4pm. Safety measures maintained. Call light and personal items within reach. Will continue to monitor.
[2020-02-11 04:00] VITALS: BP 148/72
[2020-02-11] MEDS: PANTOPRAZOLE SODIUM 40 MG TABLET.DR PO SCH (06:01)
[2020-02-11] MEDS: CLOPIDOGREL 75 MG TABLET PO SCH (08:49)
[2020-02-11] MEDS: DOCUSATE SODIUM 100 MG CAPSULE PO SCH (08:49)
[2020-02-11] MEDS: VALSARTAN 80 MG TABLET PO SCH (08:49)
[2020-02-11] MEDS: CLOTRIMAZOLE 1% CREAM 30 GM TUBE TOP SCH (08:50)
[2020-02-11 11:05] VITALS: BP 142/69
--- NOTE | 2020-02-11 17:07 | NUR ---
D/C TO HOME VIA [facility]. D/C INSTRUCTIONS GIVEN VERBALIZED UNDERSTANDING. SKIN PICS TAKEN. MEDS GIVEN FOR PHARMACY. GROIN PIC TAKEN OF ONE SIDE SHE REFUSED MORE PICS. STATING THE PROCESS WAS EMBARRASSING CONSIDERING SHE DID NOT HAVE ANY MAJOR SKIN ISSUES
== END 2020-02-11 17:12 | disposition home or self-care (01) | DRG 57 ==
PROVIDERS: ADMIT Physical Medicine & Rehabilitation Pain Medicine; ATTEND Physical Medicine & Rehabilitation Pain Medicine
DX: I69.354 Hemiplegia and hemiparesis following cerebral infarction affecting left non-dominant side (principal); D68.59 Other primary thrombophilia; J98.11 Atelectasis; E04.2 Nontoxic multinodular goiter; E66.9 Obesity, unspecified; I69.322 Dysarthria following cerebral infarction; I69.391 Dysphagia following cerebral infarction; R13.10 Dysphagia, unspecified; Z68.38 Body mass index [BMI] 38.0-38.9, adult; E78.5 Hyperlipidemia, unspecified; H54.62 Unqualified visual loss, left eye, normal vision right eye; I65.23 Occlusion and stenosis of bilateral carotid arteries; I70.0 Atherosclerosis of aorta; M19.90 Unspecified osteoarthritis, unspecified site; R26.89 Other abnormalities of gait and mobility; R73.03 Prediabetes; I25.10 Atherosclerotic heart disease of native coronary artery without angina pectoris; Z95.1 Presence of aortocoronary bypass graft; I10 Essential (primary) hypertension; H26.9 Unspecified cataract
CPT/HCPCS: 36415; 82652; 83735; 84100; 84443; 85025